=== PATIENT | female | born 1975 | race African-American/Black ===

== ENCOUNTER 2019-10-20 12:50 | Inpatient (IN) | payer OTHER ==
[~2019-10-20] VITALS: Ht 167.6 cm; Wt 140.6 kg
[2019-10-20 12:55] VITALS: BP 127/49
--- NOTE | 2019-10-20 13:03 | NUR ---
AMB TO BED 07
--- NOTE | 2019-10-20 13:05 | NUR ---
44 YRS OLD FEMALE BIB FAMILY C/O PAIN 04/21 WHEN WALKING ON THE LEFT LEG FROM A CAT BITE/SCRATCH X 5 DAYS AGO. PER PT, ONLY PAINFUL WHEN WALKING AND PUTTING PRESSURE ON THE LEFT LEG, NO PAIN WHEN LEG IS ELEVATED. LAST TYLENOL TAKEN TODAY 10/20/2019 AT 1100. HX - DM, HTN, MS, VENOUS INSUFFICIENCY.
--- NOTE | 2019-10-20 13:05 | NUR ---
FAMILY AT BEDSIDE, BED IN LOWEST POSITION, SIDE RAIL UP X1. WILL CONTINUE TO MONITOR.
--- NOTE | 2019-10-20 13:08 | NUR ---
DR. PARKS EVALUATING PT AT BEDSIDE.
[2019-10-20] MEDS ORDERED: AMPICILLIN/SULBACTAM 3 GM VIAL IM ONE (13:20)
[2019-10-20] MEDS ORDERED: NACL 0.9% 1,000 ML IV ONE (13:20)
[2019-10-20] MEDS ORDERED: KETOROLAC 30 MG/ML VIAL IVP ONE (13:20)
[2019-10-20] MEDS ORDERED: AMPICILLIN/SULBACTAM 3 GM VIAL IVP ONE (13:30)
--- NOTE | 2019-10-20 13:34 | NUR ---
radiology at bedside
[2019-10-20 13:55] LABS: HEMATOCRIT 40.2 % (36-48); HEMOGLOBIN 13.7 g/dL (12.0-16.0); MEAN CORPUSCULAR HEMOGLOBIN 29 pg (27-31); MEAN CORPUSCULAR HGB CONC 34 g/dL (33-37); MEAN CORPUSCULAR VOLUME 84.2 fL (80-94); PLATELET COUNT (AUTO) 515 K/uL (140-450); RED BLOOD CELL COUNT(AUTO) 4.77 MIL/uL (4.20-5.40); RED CELL DISTRIBUTION WIDTH 14.1 % (11.6-13.7); WHITE BLOOD COUNT (AUTO) 20.5 K/uL (4.8-10.8)
--- NOTE | 2019-10-20 13:58 | NUR ---
WOUND CULTURE OF LEFT LOWER LEG COLLECTED AND SENT TO LAB AT THIS TIME.
[2019-10-20] MEDS ORDERED: AMPICILLIN/SULBACTAM 3 GM in NACL 0.9% 100 ML IV ONE (14:00)
[2019-10-20 14:14] LABS: ALBUMIN 3.4 g/dL (3.4-5.0); ANION GAP 13.7 (8-16); CARBON DIOXIDE 27.2 mmol/L (21-32); CREATININE 0.9 mg/dL (0.6-1.3); POTASSIUM 3.9 mmol/L (3.5-5.1); PROTHROMBIN TIME 10.3 secs (10.8-13.4); TOTAL BILIRUBIN 0.6 mg/dL (0.0-1.0)
--- NOTE | 2019-10-20 14:30 | NUR ---
PT RESTING IN BED, SIDE RAIL UP X1. WILL CONTINUE TO MONITOR.
[2019-10-20 14:39] LABS: EOSINOPHILS % (MANUAL) 2 % (0-4); LYMPHOCYTES % (MANUAL) 11 % (20-46); MONOCYTES % (MANUAL) 1 % (5-12)
[2019-10-20] MEDS ORDERED: ACETAMINOPHEN 325 MG TAB PO PRN (15:10)
[2019-10-20] MEDS ORDERED: LORazepam 2 MG/ML VIAL IM/IVP PRN (15:10)
[2019-10-20] MEDS ORDERED: DOCUSATE SODIUM 100 MG GELCAP PO PRN (15:10)
[2019-10-20] MEDS ORDERED: ZOLPIDEM 5 MG TAB PO PRN (15:10)
[2019-10-20] MEDS ORDERED: MORPHINE SULFATE 2 MG/ML SYR IVP PRN (15:10)
[2019-10-20] MEDS ORDERED: ONDANSETRON 4 MG/2 ML VIAL IM/IVP PRN (15:10)
[2019-10-20] MEDS ORDERED: DEXTROSE 50% 50 ML SYR IVP PRN (15:20)
[2019-10-20] MEDS ORDERED: INSULIN LISPRO SLIDING SCALE 100 UNITS/ML VIAL SUBQ PRN (15:20)
[2019-10-20] MEDS ORDERED: ORE25 PO (15:26)
[2019-10-20] MEDS ORDERED: PAM10 PO (15:26)
[2019-10-20 15:54] LABS: CHOL/HDL RATIO 2.6 (1-4.5); MAGNESIUM 1.9 mg/dL (1.8-2.4); PHOSPHORUS 4.4 mg/dL (2.5-4.9); THYROID STIMULATING HORMONE 1.36 uIU/mL (0.34-3.74)
--- NOTE | 2019-10-20 16:16 | NUR ---
Patient will be admitted to care of [facility]. Admited to MED-SURG. Will go to room 104B. Belongings list completed. Report to ROMARIO MARIN.
[2019-10-20 16:30] VITALS: BP 122/76
[2019-10-20] MEDS: BLOOD GLUCOSE MONITORING 1 DEV DEV FS SCH ×2 (16:30→21:01)
--- NOTE | 2019-10-20 16:30 | NUR ---
RECEIVED REPORT FROM EMERGENCY ROOM NURSE FOR CONTINUITY OF CARE. PT IN STABLE CONDITION. RESPIRATIONS EVEN AND UNLABORED, ROOM AIR. IV INTACT AND PATENT. SAFETY MEASURES IN PLACE. BED IN LOW POSITION. CALL LIGHT AT BEDSIDE. WILL CONTINUE TO MONITOR.
--- NOTE | 2019-10-20 17:10 | NUR ---
ULTRASOUND AT BEDSIDE AT THIS TIME. PT IN STABLE CONDITION.
--- NOTE | 2019-10-20 17:30 | NUR ---
X-RAY AT BEDSIDE AT THIS TIME. PT IN STABLE CONDITION.
[2019-10-20] MEDS: AMPICILLIN/SULBACTAM 3 GM in NACL 0.9% 100 ML IV SCH (18:45)
[2019-10-20] MEDS: NACL 0.9% 1,000 ML IV SCH (18:46)
[2019-10-20] MEDS: NORTRIPTYLINE 10 MG CAP PO SCH (18:47)
--- NOTE | 2019-10-20 19:29 | NUR ---
GAVE REPORT TO ACID TREATER NURSE FOR CONTINUITY OF CARE. PT IN STABLE CONDITION.
--- NOTE | 2019-10-20 19:30 | NUR ---
RECEIVED BEDSIDE REPORT FROM DAY RN. PT IS AAOX4. RESPIRATIONS ARE EQUAL AND UNLABORED ON ROOM AIR. LUNG SOUNDS ARE CLEAR. MOTHER IS AT BEDSIDE. 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 DX L LEG CELLULITIS. DRY CLEANING MACHINE OPERATOR HELPER SAW PT AND WRAPPED LEG WITH KERLIX. DRESSING IS C/D/I. IV ON RAC20G IVF PER ORDERS. PT ABLE TO AMBULATE AND MAKE NEEDS KNOWN. POC DISCUSSED WITH PT AND FAMILY. CALL LIGHT IS WITHIN REACH. WILL CONTINUE TO MONITOR.
[2019-10-20] MEDS: HYDROCHLOROTHIAZIDE 25 MG TAB PO SCH (21:09)
--- NOTE | 2019-10-20 21:09 | NUR ---
VSS:105/58 HR 96 TEMP 97.7 DENIES PAIN 96%RA RR 14. SCHE MEDICATIONS GIVEN PER ORDERS. BLOOD SUGAR 157 PT REFUSED INSULIN EDUCATED PT ON IMPORTANCE OF DM CONTROL VERBALIZED UNDERSTANDING. WILL RECHECK IN AM. MOTHER AT BEDSIDE. WILL CONTINUE TO MONITOR.
--- NOTE | 2019-10-20 22:30 | NUR ---
PT IS RESTING COMFORTABLY IN BED WATCHING T.V WITH MOTHER AT BEDSIDE. CALL LIGHT IS WITHIN REACH. WILL CONTINUE TO MONITOR.
[2019-10-21] VITALS: BP 105/58
--- NOTE | 2019-10-21 | NUR ---
VITAL SIGNS ARE WITHIN NORMAL LIMITS. ALL NEEDS MET AT THIS TIME. MOTHER IS AT BEDSIDE. SAFETY MEASURES ARE IN PLACE.
[2019-10-21] MEDS: AMPICILLIN/SULBACTAM 3 GM in NACL 0.9% 100 ML IV SCH ×5 (00:08→23:44)
--- NOTE | 2019-10-21 02:00 | NUR ---
PATIENT IS SLEEPING COMFORTABLY IN BED WITH EYES CLOSED. CHEST RISE AND FALL NOTED. MOTHER IS AT BEDSIDE. ALL SAFETY MEASURES ARE IN PLACE. WILL CONTINUE TO MONITOR.
--- NOTE | 2019-10-21 04:00 | NUR ---
PT IS SLEEPING WITH EYES CLOSED IN BED. CHEST RISE AND FALL NOTED. NO S/S OF DISTRESS. CALL LIGHT IS WITHIN REACH.
[2019-10-21] MEDS: HYDROcodone/APAP 5/325 MG 1 TAB TAB PO PRN ×3 (04:40→20:05)
--- NOTE | 2019-10-21 05:38 | NUR ---
UNASYN NOW INFUSING PER ORDERS. BLOOD SUGAR 96 NO COVERAGE NEEDED. MOTHER IS AT BEDSIDE. CALL LIGHT IS WITHIN REACH.
[2019-10-21] MEDS: BLOOD GLUCOSE MONITORING 1 DEV DEV FS SCH ×4 (05:43→20:05)
[2019-10-21 07:12] LABS: BASOPHILS % (AUTO) 0.3 % (0.0-2.0); EOSINOPHILS # (AUTO) 0.2 K/uL (0-0.4); EOSINOPHILS % (AUTO) 1.4 % (0.0-4.0); HEMATOCRIT 34.4 % (36-48); HEMOGLOBIN 11.9 g/dL (12.0-16.0); LYMPHOCYTES # (AUTO) 3.7 K/uL (2.5-16.5); LYMPHOCYTES % (AUTO) 25.2 % (20.5-51.1); MEAN CORPUSCULAR HEMOGLOBIN 29 pg (27-31); MEAN CORPUSCULAR HGB CONC 35 g/dL (33-37); MEAN CORPUSCULAR VOLUME 83.7 fL (80-94); MONOCYTES # (AUTO) 1.9 K/uL (0.8-1.0); MONOCYTES % (AUTO) 12.7 % (1.7-9.3); NEUTROPHILS # (AUTO) 8.8 K/uL (1.8-7.7); NEUTROPHILS % (AUTO) 60.4 % (42.2-75.2); PLATELET COUNT (AUTO) 478 K/uL (140-450); RED BLOOD CELL COUNT(AUTO) 4.11 MIL/uL (4.20-5.40); WHITE BLOOD COUNT (AUTO) 14.6 K/uL (4.8-10.8)
[2019-10-21 07:24] LABS: CARBON DIOXIDE 27.7 mmol/L (21-32); CREATININE 0.9 mg/dL (0.6-1.3); POTASSIUM 3.7 mmol/L (3.5-5.1)
[2019-10-21 07:28] LABS: MAGNESIUM 1.9 mg/dL (1.8-2.4); PHOSPHORUS 3.1 mg/dL (2.5-4.9)
--- NOTE | 2019-10-21 07:34 | NUR ---
RECEIVED BEDSIDE REPORT FROM CERTIFIED REGISTERED NURSE ANESTHETIST NURSE FOR CONTINUITY OF CARE. PT AWAKE AND TALKING TO HER MOTHER BY BEDSIDE. RESPIRATION EVEN AND UNLABORED ON RA. DENIED PAIN, SOB AND DIZZINESS. NO SIGNS OF DISTRESS NOTED. IV ON RAC 20, CLEAN AND INTACT, INFUSING PER MD ORDER. L LEG WRAPPED AROUND WITH CLEAN DRESSING, UNDERWRITING SUPPORT SPECIALIST CHANGED THIS AM. PT IS CONTINENT AND AMBULATE WITH CANE. DISCUSSED PLAN OF CARE WITH PT AND PT SAID OK. CONTACT PRECAUTION IN PLACE. SAFETY MEASURES IN PLACE. BED IN LOW POSITION AND CALL LIGHT WITHIN REACH. INSTRUCTED PT TO USE THE CALL LIGHT FOR ANY ASSISTANCE AND PT AWARE.
--- NOTE | 2019-10-21 07:34 | NUR ---
GAVE BEDSIDE REPORT TO DAY RN. PT ENDORSED IN STABLE CONDITION.
[2019-10-21 08:00] VITALS: BP 115/75
--- NOTE | 2019-10-21 08:30 | NUR ---
PATIENT HAS BEEN SCREENED AND CATEGORIZED MODERATE NUTRITION RISK. PATIENT WILL BE SEEN WITHIN 3-5 DAYS OF ADMISSION. 10/23/19 10/25/[address]
[2019-10-21] MEDS: NORTRIPTYLINE 10 MG CAP PO SCH ×3 (09:00→16:52)
[2019-10-21] MEDS: LACTOBACILLUS RHAMNOSUS GG 1 EACH CAP PO SCH (09:00)
[2019-10-21] MEDS: NACL 0.9% 1,000 ML IV SCH (09:31)
[2019-10-21] MEDS: HYDROCHLOROTHIAZIDE 25 MG TAB PO SCH ×2 (09:32→20:05)
--- NOTE | 2019-10-21 09:39 | NUR ---
ADMINISTERED AM MEDS AD PER MD ORDER, MEDS EDUCATION AND EXPLAINED TO PATIENT AND MOTHER AT BEDSIDE ON EACH MED, PT AGREED TO TAKE MEDS AND COMPLAINED SHE HAS 6/10 PAIN ON HER LEG. AFTER CO-SIGN WITH ANOTHER NURSE AND GOT BACK INTO PT'S ROOM, PREPARED MEDS, PT REFUSED LACTOBACILLUS, HEPARIN AND NORTRIPTYLINE, AND STATED "I WILL JUST TAKE THE BP MED AND THE PAIN MED, THIS IS TOO MUCH MEDICATIONS." EDUCATED PT ON MEDS, AND PT INSISTED NOT WANTING THEM, NORTRIPTYLINE AND LACTOBACILLUS WERE OPENED; NOTIFIED PHARMACIST. PT AWAKE AND RESTING ON BED. NO SIGNS OF DISTRESS NOTED. SAFETY MEASURES IN PLACE. INSTRUCTED PT TO USE THE CALL LIGHT FOR ANY ASSISTANCE AND PT AWARE.
--- NOTE | 2019-10-21 11:10 | NUR ---
WOUND CARE EVALUATION NOT DONE. PT. SEEN AND TREATED BY ASSESSMENT DIRECTOR, LLE DRESSING DRY,CLEAN AND INTACT. POC DISCUSSED WITH PT. PT REPLIES "I DO NOT WANT I&D PROCEDURE, I KNOW MY BODY AND I AM A DIABETIC, I DON'T WANT MY LEG HAS WOUND" ABOVE INFORMATION NOTIFIED PRIMARY RN AND DR. HOPPER. DR. FISHER SAID THAT SHE WILL TALK TO PT.
--- NOTE | 2019-10-21 11:20 | NUR ---
INFORMED PT THAT SHE WILL BE NPO AFTER MIDNIGHT FOR I&D. AND URINE SAMPLE IS NEEDED, PROVIDED SPCIEMENT CUP AND INSTRUCTED PT TO USE IT WHEN SHE HAS URINE. PT AWARE. PT IS RESTING ON BED AT THIS TIME AND MOTHER BY BEDSIDE. NO SIGNS OF DISTRESS NOTED. SAFETY MEASURES IN PLACE. INSTRUCTED PT TO USE THE CALL LIGHT FOR ANY ASSISTANCE AND PT AWARE.
--- NOTE | 2019-10-21 11:56 | NUR ---
CHECKED BLOOD GLUCOSE AND RECEIVED 86, NO INSULIN COVERAGE NEEDED. DICK HOPPER EXPLAINED TO PT ABOUT THE RISKS AND BENEFITS AT BEDSIDE, AND PT VERBALIZED UNDERSTANDING, BUT INSISTING NOT WANT TO DO THE PROCEDURE. NO SIGNS OF DISTRESS NOTED. SAFETY MEASURES IN PLACE. INSTRUCTED PT TO USE THE CALL LIGHT FOR ANY ASSISTANCE AND PT AWARE.
--- NOTE | 2019-10-21 12:27 | NUR ---
ADMINISTERED AMPLICILLIN AND AULBACTAM ANTIBIOTIC PER MD ORDER VIA IVPB, MED EDUCATION PROVIDED TO PT AND MOTHER AT BEDSIDE, BOTH VERBALIZED UNDERSTANDING. PT AWAKE AND EATING LUNCH ON BED AT THIS TIME. NO SIGNS OF DISTRESS NOTED. SAFETY MEASURES IN PLACE. INSTRUCTED PT TO USE THE CALL LIGHT FOR ANY ASSISTANCE AND PT AWARE.
--- NOTE | 2019-10-21 13:12 | NUR ---
ADMINISTERED MED NOTRIPTYLINE PER MD ORDER, MED EDUCATION PROVIDED TO PT AND PT SAID OK. PT TOLERATED PO MED WELL. PT IS AWAKE AND TALKING TO MOTHER AT BEDSIDE. NO SIGNS OF DISTRESS NOTED. SAFETY MEASURES IN PLACE.
--- NOTE | 2019-10-21 13:57 | NUR ---
Late entry. Confirmed with RN that Ampicillin was completed at 1510.
--- NOTE | 2019-10-21 15:40 | NUR ---
PT IS RESTING ON BED AND WATCHING TV. MOTHER BY BEDSIDE. NO SIGNS OF DISTRESS NOTED. SAFETY MEASURES IN PLACE.
[2019-10-21 16:00] VITALS: BP 117/73
--- NOTE | 2019-10-21 16:52 | NUR ---
CHECKED BLOOD GLUCOSE AND RECEIVED 101, NO COVERAGE NEEDED. ADMINISTERED SCHEDULED MED NORTRIPTYLINE MD ORDER, MED EDUCATION PROVIDED AND PT SAID OK. PT TOLERATED PO MED WELL. PT AWAKE AND TALKING TO MOTHER AT BEDSIDE. NO SIGNS OF DISTRESS NOTED. SAFETY MEASURES IN PLACE. INSTRUCTED PT TO USE THE CALL LIGHT FOR ANY ASSISTANCE AND PT AWARE.
--- NOTE | 2019-10-21 19:45 | NUR ---
ENDORSED PT AT BEDSIDE TO MEDICAL ADMINISTRATOR NURSE FOR CONTINUITY OF CARE. PT AWAKE AND RESTING ON BED. NO SIGNS OF DISTRESS NOTED. SAFETY MEASURES IN PLACE.
--- NOTE | 2019-10-21 19:46 | NUR ---
RECEIVED BEDSIDE REPORT FROM DAY SHIFT NURSELUKAS FOR CONTINUITY OF CARE. PT AWAKE AND RESTING IN BED. RESPIRATION EVEN AND UNLABORED ON RA. C/O PAIN, WILL MEDICATE, IV ON RAC 20, CLEAN AND INTACT, INFUSING PER MD ORDER. L LEG WRAPPED AROUND WITH CLEAN DRESSING, PERSONNEL ASSOCIATE CHANGED THIS AM. PT IS CONTINENT AND AMBULATE WITH CANE. DISCUSSED PLAN OF CARE WITH PT AND PT SAID OK. CONTACT PRECAUTION IN PLACE. SAFETY MEASURES IN PLACE. BED IN LOW POSITION AND CALL LIGHT WITHIN REACH. INSTRUCTED PT TO USE THE CALL LIGHT FOR ANY ASSISTANCE AND PT AWARE.
--- NOTE | 2019-10-21 20:05 | NUR ---
GIVEN ORETIC, PT REFUSED HEPARIN. EXPLAIN BENEFIT AND RISK 3TIMES, PT STILL REFUSED. PT C/O 01/19 PAIN, GIVEN NORCO MD ORDERED. BS CHECKED, 128, NO INSULIN COVERAGE NEEDED.
--- NOTE | 2019-10-21 22:05 | NUR ---
PT RESTING IN BED. NO ACUTE DISTRESS NOTED.
--- NOTE | 2019-10-21 23:44 | NUR ---
GIVEN UNASYN MD ORDERED. PT TOLERATED WELL.
[2019-10-22] VITALS: BP 108/68
[2019-10-22] MEDS: NACL 0.9% 1,000 ML IV SCH ×2 (00:29→05:38)
--- NOTE | 2019-10-22 02:02 | NUR ---
PT SLEEPING IN BED COMFORTABLY. NO ACUTE DISTRESS NOTED.
[2019-10-22] MEDS: HYDROcodone/APAP 5/325 MG 1 TAB TAB PO PRN (04:25)
--- NOTE | 2019-10-22 04:26 | NUR ---
PT C/O 01/19 PAIN, GIVEN NORCO MD ORDERED. PT TOLERATED WELL.
[2019-10-22] MEDS: AMPICILLIN/SULBACTAM 3 GM in NACL 0.9% 100 ML IV SCH ×3 (05:37→18:25)
[2019-10-22] MEDS: BLOOD GLUCOSE MONITORING 1 DEV DEV FS SCH ×4 (05:38→20:40)
--- NOTE | 2019-10-22 05:40 | NUR ---
GIVEN UNASYN MD ORDERED. PT TOLERATED WELL. BS CHECKED, 94. NO INSULIN COVERAGE NEEDED.
--- NOTE | 2019-10-22 06:39 | NUR ---
PT IN STABLE CONDITION. WILL ENDORSE PT TO DAY SHIFT NURSE.
[2019-10-22 06:41] LABS: BASOPHILS # (AUTO) 0.1 K/uL (0.00-0.22); BASOPHILS % (AUTO) 0.6 % (0.0-2.0); EOSINOPHILS # (AUTO) 0.3 K/uL (0-0.4); EOSINOPHILS % (AUTO) 1.9 % (0.0-4.0); HEMATOCRIT 36.4 % (36-48); HEMOGLOBIN 12.4 g/dL (12.0-16.0); LYMPHOCYTES # (AUTO) 3.3 K/uL (2.5-16.5); LYMPHOCYTES % (AUTO) 23.3 % (20.5-51.1); MEAN CORPUSCULAR HEMOGLOBIN 29 pg (27-31); MEAN CORPUSCULAR HGB CONC 34 g/dL (33-37); MEAN CORPUSCULAR VOLUME 85.2 fL (80-94); MONOCYTES # (AUTO) 1.5 K/uL (0.8-1.0); MONOCYTES % (AUTO) 10.8 % (1.7-9.3); NEUTROPHILS # (AUTO) 8.8 K/uL (1.8-7.7); NEUTROPHILS % (AUTO) 63.4 % (42.2-75.2); PLATELET COUNT (AUTO) 506 K/uL (140-450); RED BLOOD CELL COUNT(AUTO) 4.27 MIL/uL (4.20-5.40); RED CELL DISTRIBUTION WIDTH 14.1 % (11.6-13.7)
[2019-10-22 06:57] LABS: MAGNESIUM 1.7 mg/dL (1.8-2.4)
[2019-10-22 07:03] LABS: ANION GAP 12.1 (8-16); CARBON DIOXIDE 29.5 mmol/L (21-32); CREATININE 0.8 mg/dL (0.6-1.3); POTASSIUM 3.6 mmol/L (3.5-5.1)
--- NOTE | 2019-10-22 07:20 | NUR ---
RECEIVED BEDSIDE SHIFT REPORT FROM VISUAL MERCHANDISING DIRECTOR NURSE FOR CONTINUATION OF CARE.
[2019-10-22 08:00] VITALS: BP 106/72
[2019-10-22 08:19] LABS: PROTHROMBIN TIME 10.4 secs (10.8-13.4)
[2019-10-22] MEDS: LACTOBACILLUS RHAMNOSUS GG 1 EACH CAP PO SCH (08:36)
[2019-10-22] MEDS: NORTRIPTYLINE 10 MG CAP PO SCH ×3 (08:36→18:24)
[2019-10-22] MEDS: HYDROCHLOROTHIAZIDE 25 MG TAB PO SCH ×2 (08:37→20:24)
[2019-10-22 09:55] LABS: APPEARANCE,URINE CLEAR (CLEAR); BILIRUBIN,URINE NEGATIVE (NEGATIVE); BLOOD, URINE TRACE-I (NEGATIVE); COLOR,URINE YELLOW (YELLOW); LEUKOCYTE ESTERASE ,URINE NEGATIVE (NEGATIVE); NITRITE, URINE NEGATIVE (NEGATIVE); UGLUCOSE NEGATIVE (NEGATIVE)
[2019-10-22] MEDS ORDERED: MAG SULF 2000 MG/WATER PREMIX 50 ML IV SCH (10:00)
[2019-10-22 10:07] LABS: BARBITURATE, URINE NEG. ng/ml (NEG <=200); BENZODIAZEPINE, URINE NEG. ng/mL (NEG <=200); CANNABINOID, URINE NEG. ng/mL (NEG <=50); COCAINE, URINE NEG. ng/mL (NEG <=300); OPIATE, URINE POS. ng/mL (NEG <=2000); PHENCYCLIDINE SCREEN,URINE NEG. ng/mL (NEG <=25)
[2019-10-22 10:08] LABS: RBC,URINE 0-5 /HPF (0-5); WBC,URINE 0-5 /HPF (0-5)
--- NOTE | 2019-10-22 10:39 | NUR ---
DC PLANNIN YRS OLD FEMALE PATIENT WAS ADMITTED FROM HOME WITH A DX OF LEFT LEG CELLULITIS. PT HAS A HX OF MULTIPLE SCLEROSIS ,DM AND HTN. PT HAS LEFT ANKLE LACERATION WITH OPEN WOUND.XRAY OF LT ANKLE DIFFUSE SOFT TISSUE SWELLING. BLOOD, URINE AND WOUND CULTURE PENDING DR SANCHES CONSULTED AND ORDERED UNASYN AND CULTURELLE, DR MATSON CONSULTED AND PT IS GOING FOR I&D TODAY BY PODIATRY DC PLAN TO GO TO [facility] FOR IV [facility] AND WOUND CARE. FAXED ALL PAPERWORK TO [facility] CM TO FOLLOW. Addendum: 10/22/19 at 1202 by Kristyn Kilgore CM DC PLANNING RECEIVED A CALL FROM [facility] SPOKE WITH NORM ,ACCEPTED PATIENT, CAN GO TO ROOM 307B PER [facility] CAN ARRANGE TRANSPORT WHEN PT IS READY TO DISCHARGE. CM TO FOLLOW
--- NOTE | 2019-10-22 12:00 | NUR ---
CONSENT FOR SURGERY SIGNED, SURGERY POSTPONED UNTIL 1600, PATIENT IS AWARE AND HAS NO CONCERNS.
[2019-10-22] MEDS ORDERED: BUPIVACAINE-MPF 0.5% 30 ML VIAL INJ ONE (15:54)
[2019-10-22] MEDS ORDERED: MEPERIDINE 50 MG/ML SYR ONE (16:05)
[2019-10-22] MEDS ORDERED: KETOROLAC 30 MG/ML VIAL ONE (16:05)
[2019-10-22] MEDS ORDERED: PROPOFOL 200 MG/20 ML VIAL IV ONE (16:05)
[2019-10-22] MEDS ORDERED: ONDANSETRON 4 MG/2 ML VIAL ONE (16:05)
[2019-10-22] MEDS ORDERED: DEXAMETHASONE 4 MG/ML VIAL ONE (16:05)
[2019-10-22] MEDS ORDERED: SEVOFLURANE 250 ML BTL INH ONE (16:05)
[2019-10-22] MEDS ORDERED: NACL 0.9% 1,000 ML IV SCH (16:48)
[2019-10-22] MEDS ORDERED: diphenhydrAMINE 50 MG/ML VIAL IVP PRN (16:50)
[2019-10-22] MEDS ORDERED: HYDROmorphone 1 MG/ML AMP IVP PRN (16:50)
[2019-10-22] MEDS ORDERED: ONDANSETRON 4 MG/2 ML VIAL IVP PRN (16:50)
[2019-10-22] MEDS ORDERED: BLOOD GLUCOSE MONITORING 1 DEV DEV FS SCH (16:50)
[2019-10-22] MEDS ORDERED: MEPERIDINE 25 MG/ML SYR IVP PRN (16:50)
--- NOTE | 2019-10-22 18:00 | NUR ---
PATIENT RETURNED FROM OR IN STABLE CONDITION, LEFT LOWER EXTREMITY FROM LOWER CALF DOWN IS DRESSED. PATIENT DENIES PAIN AT THIS TIME, EDUCATED ON THE IMPORTANCE OF STAYING AHEAD OF SEVERE PAIN. IV ANTIBIOTICS ADMINISTERED PER MD'S ORDERS. REGULAR DIET. WILL CONTINUE TO MONITOR.
--- NOTE | 2019-10-22 19:25 | NUR ---
BEDSIDE SHIFT REPORT GIVEN TO CARPENTER WOODEN TANK ERECTING NURSE FOR CONTINUATION OF CARE.
--- NOTE | 2019-10-22 19:26 | NUR ---
RECEIVED BEDSIDE SHIFT REPORT FROM AM NURSE FOR CONTINUITY OF CARE. PATIENT AWAKE AND RESTING IN BED AAOX4. NO SIGNS OF DISTRESS NOTED. RESPIRATIONS ARE EVEN AND UNLABORED. SAFETY MEASURES IN PLACE. BED IN LOW POSITION AND CALL LIGHT WITHIN REACH. WILL CONTINUE TO MONITOR
--- NOTE | 2019-10-22 20:41 | NUR ---
PATIENT REFUSED HEPARIN AND 2 UNITS OF INSULIN COVERAGE NEEDED PER MD SLIDING SCALE. PT PROVIDED MEDICATION EDUCATION AND STILL REFUSED THE MEDICATIONS. WILL CONTINUE TO MONITOR
--- NOTE | 2019-10-22 21:41 | NUR ---
INITIATED INCENTIVE SPIROMETRY AT THIS TIME. AVERAGE INSPIRED VOLUME OF 1500ML OUT OF 10 BREATHS. PT PREDICTED VOLUME OF 2400ML. INCENTIVE SPIROMETRY LEFT CLOSE TO PT, AND PT WAS REMINDED TO PERFORMED IS 10X EVERY HOUR WHILE AWAKE.
[2019-10-23] VITALS: BP 99/63
[2019-10-23] MEDS: AMPICILLIN/SULBACTAM 3 GM in NACL 0.9% 100 ML IV SCH ×2 (00:27→06:00)
--- NOTE | 2019-10-23 00:27 | NUR ---
ADMINISTERED PT MEDICATION. PT TOLERATED WELL. CALL LIGHT WITHIN REACH
--- NOTE | 2019-10-23 04:10 | NUR ---
HOURLY ROUNDING. PATIENT SLEEPING. EASILY AROUSABLE. SAFETY MEASURES IN PLACE. CALL-LIGHT WITHIN REACH
[2019-10-23] MEDS: NACL 0.9% 1,000 ML IV SCH (06:01)
[2019-10-23] MEDS: BLOOD GLUCOSE MONITORING 1 DEV DEV FS SCH (06:15)
--- NOTE | 2019-10-23 06:15 | NUR ---
ADMINISTERED PT MEDICATION. PT TOLERATED WELL. NO SIGNS OF DISTRESS NOTED. WILL CONTINUE TO MONITOR
[2019-10-23 07:17] LABS: BASOPHILS % (AUTO) 0.2 % (0.0-2.0); HEMATOCRIT 34.8 % (36-48); HEMOGLOBIN 11.9 g/dL (12.0-16.0); LYMPHOCYTES # (AUTO) 1.7 K/uL (2.5-16.5); LYMPHOCYTES % (AUTO) 12.2 % (20.5-51.1); MEAN CORPUSCULAR HEMOGLOBIN 29 pg (27-31); MEAN CORPUSCULAR HGB CONC 34 g/dL (33-37); MEAN CORPUSCULAR VOLUME 83.8 fL (80-94); MONOCYTES # (AUTO) 1.3 K/uL (0.8-1.0); MONOCYTES % (AUTO) 9.3 % (1.7-9.3); NEUTROPHILS # (AUTO) 10.8 K/uL (1.8-7.7); NEUTROPHILS % (AUTO) 78.3 % (42.2-75.2); PLATELET COUNT (AUTO) 528 K/uL (140-450); RED BLOOD CELL COUNT(AUTO) 4.15 MIL/uL (4.20-5.40); WHITE BLOOD COUNT (AUTO) 13.8 K/uL (4.8-10.8)
--- NOTE | 2019-10-23 07:19 | NUR ---
ENDORSED PT TO DAYSHIFT NURSE ZEINA AT BEDSIDE FOR CONTINUITY OF CARE. CALL LIGHT WITHIN REACH
--- NOTE | 2019-10-23 07:20 | NUR ---
RECEIVED BEDSIDE SHIFT REPORT FROM HOTEL GENERAL MANAGER NURSE FOR CONTINUATION OF CARE.
[2019-10-23 07:32] LABS: ANION GAP 9.1 (8-16); CARBON DIOXIDE 31.4 mmol/L (21-32); CREATININE 0.8 mg/dL (0.6-1.3); POTASSIUM 4.5 mmol/L (3.5-5.1)
[2019-10-23 07:36] LABS: MAGNESIUM 2.4 mg/dL (1.8-2.4); PHOSPHORUS 3.2 mg/dL (2.5-4.9)
[2019-10-23] MEDS ORDERED: AMOX1TAB15 PO (08:05)
[2019-10-23] MEDS ORDERED: ACET-2619 PO (08:09)
[2019-10-23] MEDS ORDERED: LACT10CA1 PO (08:10)
--- NOTE | 2019-10-23 08:10 | NUR ---
LEFT AMA, IV LINE REMOVED, AMA FORM SIGNED BY PATIENT AND MD. COPY GIVEN TO PATIENT.
== END 2019-10-23 08:10 | disposition left against medical advice (07) | DRG 854 ==
LOC: MED 12:50 → MTU 15:15
PROVIDERS: ADMIT General Practice; ATTEND General Practice
PROC: 0J9R0ZZ Drainage of Left Foot Subcutaneous Tissue and Fascia, Open Approach (ICD-10-PCS; principal; 2019-10-22 16:00)
DX: A41.9 Sepsis, unspecified organism (principal); L03.116 Cellulitis of left lower limb; Z68.43 Body mass index [BMI] 50.0-59.9, adult; E66.01 Morbid (severe) obesity due to excess calories; Z71.3 Dietary counseling and surveillance; W55.01XA Bitten by cat, initial encounter; S91.012A Laceration without foreign body, left ankle, initial encounter; Y93.89 Activity, other specified; Y92.89 Other specified places as the place of occurrence of the external cause; Y99.8 Other external cause status; E11.42 Type 2 diabetes mellitus with diabetic polyneuropathy; D47.3 Essential (hemorrhagic) thrombocythemia; E11.51 Type 2 diabetes mellitus with diabetic peripheral angiopathy without gangrene; G35 Multiple sclerosis; Z91.19 Patient's noncompliance with other medical treatment and regimen; E83.42 Hypomagnesemia; E11.69 Type 2 diabetes mellitus with other specified complication
CPT/HCPCS: 36415; 71045; 73610; 76881; 80048; 80053; 80305; 81001; 82948; 83036; 83605; 83690; 83735; 84100; 84134; 84443; 84702; 85025; 85610; 85730; 86886; 86900; 86901; 87040; 87070; 87075; 87081; 87086; 87205; 93970; 96365; 96375; 99285; J0295; J1100; J1170; J1644; J1815; J1885; J2175; J2405; J2704; J3475; J3490; J7030; Q0092